=== PATIENT | female | born 1950 | race Caucasian/White ===

== ENCOUNTER → 2016-07-04 | Outpatient (CLI) | payer OTHER, MEDICARE ==
[~2016-07-04] MED LIST: ASPI81TA28 PO; ATEN-173 PO; LACT12LO28 TOP; LORA-741 PO; LOSA50TA6 PO; MULT-513 PO; OMEG10007 PO; ROSU40TA PO; TRAMTAB5 PO
== END | disposition home or self-care (01) ==
LOC: C.MAMM 07:51
PROVIDERS: ATTEND Internal Medicine
DX: Z13.820 Encounter for screening for osteoporosis (principal); M85.851 Other specified disorders of bone density and structure, right thigh; M85.852 Other specified disorders of bone density and structure, left thigh

== ENCOUNTER → 2016-10-15 | Outpatient (CLI) | payer OTHER, MEDICARE ==
--- NOTE | 2016-10-15 16:09 | MAMMOGRAPHY REPORT ---
BILATERAL DIGITAL SCREENING MAMMOGRAM WITH CAD: 10/15/2016 CLINICAL HISTORY: Routine screening. Patient has no complaints. TECHNIQUE: Bilateral CC and MLO views were obtained. Current study was also evaluated with a Compute r Aided Detection (CAD) system. COMPARISON: Comparison is made to exams dated: 10/13/2015 mammogram, 10/11/2014 mammogram, 09/20/2013 ma mmogram, 09/17/2012 mammogram, 07/18/2011 mammogram - [facility], and 01/16/2010 mammo gram - [facility]. BREAST COMPOSITION: The tissue of both breasts is almost entirely fatty. FINDINGS: There are a few stable punctate microcalcifications in the left breast. No suspicious mass , architectural distortion or cluster of new, suspicious microcalcifications is seen. IMPRESSION: ACR BI-RADS CATEGORY 1: NEGATIVE There is no mammographic evidence of malignancy. A 1 year screening mammogram is recommended. The pa tient will receive written notification of the results. Approximately 10% of breast cancers are not detected with mammography. A negative mammographic report should not delay biopsy if a clinically suggestive mass is present. Tri Daniel M.D. ay/:10/15/2016 15:19:27 Crisis Intervention Specialist: Camila HOLDEN(Nikolas)(Susannah)([place]), [facility] letter sent: Normal 1/2 BI-RADS Code: ACR BI-RADS Category 1: Negative
== END | disposition home or self-care (01) ==
LOC: C.MAMM 09:08
PROVIDERS: ATTEND Internal Medicine
DX: Z12.31 Encounter for screening mammogram for malignant neoplasm of breast (principal)